=== PATIENT | male | born 1980 | race Two or more races ===

== ENCOUNTER → 2018-04-06 | Outpatient (CLI) | payer OTHER | LOC: CIMAGING 16:53 | PROVIDERS: ATTEND Podiatrist Foot & Ankle Surgery | DX: S82.832A Other fracture of upper and lower end of left fibula, initial encounter for closed fracture (principal) | CPT/HCPCS: 73610-PO ==

== ENCOUNTER → 2018-04-30 | Outpatient (CLI) | payer OTHER | LOC: CIMAGING 17:38 | PROVIDERS: ATTEND Podiatrist Foot & Ankle Surgery | DX: S82.832A Other fracture of upper and lower end of left fibula, initial encounter for closed fracture (principal) | CPT/HCPCS: 73610-PO ==

== ENCOUNTER → 2018-05-20 | Outpatient (CLI) | payer OTHER | LOC: CIMAGING 09:44 | PROVIDERS: ATTEND Podiatrist Foot & Ankle Surgery | DX: Z09 Encounter for follow-up examination after completed treatment for conditions other than malignant neoplasm (principal); S82.832D Other fracture of upper and lower end of left fibula, subsequent encounter for closed fracture with routine healing | CPT/HCPCS: 73610-PO ==